=== PATIENT | female | born 1955 | race African-American/Black ===

== ENCOUNTER 2021-01-03 20:36 | Inpatient (IN) | payer MEDICARE, OTHER ==
[~2021-01-03] VITALS: Ht 162.6 cm; Wt 63.6 kg
[2021-01-03 21:36] VITALS: BP 183/93
[2021-01-03 22:12] LABS: BASOPHILS 1.3 % (0-2); EOSINOPHILS 5.7 % (0-7); HEMATOCRIT 36.9 % (36.0-48.0); HEMOGLOBIN 11.9 g/dL (12-16); LYMPHOCYTE ABS# 1.52 10x3/uL (1.18-3.74); LYMPHOCYTES 24.1 % (15-50); MCH 27.2 pg (26.0-34.0); MCHC 32.2 g/dL (31.0-37.0); MCV 84.2 fL (80.0-100.0); MEAN PLATELET VOLUME 10.8 fL (7.4-10.4); MONOCYTES 13.3 % (2-11); NEUTROPHIL ABS# 3.52 10x3/uL (1.56-6.13); NEUTROPHILS 55.6 % (40-80); PLATELET COUNT 290 10x3/uL (130-400); RBC 4.38 10x6/uL (4.00-5.40); RDW 16.2 % (11.5-14.5); WBC 6.3 10x3/uL (4.8-10.8)
[2021-01-03 22:18] LABS: ANION GAP 13.3 mmol/L (8-16); CREATININE - SERUM 3.7 mg/dL (0.6-1.3); POTASSIUM - SERUM 3.3 mmol/L (3.5-5.1)
[2021-01-03 22:24] LABS: ALBUMIN 2.5 g/dL (3.4-5.0); BILIRUBIN - TOTAL 0.4 mg/dL (0.2-1.3)
[2021-01-03 22:36] VITALS: BP 187/92
[2021-01-03 23:20] LABS: INR 1.16 (0.85-1.17); PROTIME 13.7 SECONDS (11.6-15.0)
[2021-01-03 23:36] VITALS: BP 192/93
[2021-01-04 00:30] VITALS: BP 202/102
[2021-01-04 01:30] VITALS: BP 195/108
[2021-01-04 02:30] VITALS: BP 219/95
--- NOTE | 2021-01-04 03:20 | NUR ---
PAGED DR SHARIF FOR BLOOD PRESSURE MEDICATION, STATES TO GIVE 0.1 CLONIDINE ONE TIME
[2021-01-04 03:56] VITALS: BP 183/94
--- NOTE | 2021-01-04 04:10 | NUR ---
TALKED TO NURSE ON FLOOR GIVING REPORT BUT NO PRN ORDERS IN, TRYING TO GET MEDICATION LIST ON PT, PT DOESNT KNOW, SON WONT ANSWER PHONE, PHARMACY THAT PT USES IS CLOSED
--- NOTE | 2021-01-04 05:51 | NUR ---
bP CONTINUES TO BE ELEVATED CALLED DR SHARIF. ORDERS RECIEVED FOR ONE TIME DOSE OF AMLODIPINE 10 MG. UPDATED BEDSIDE NURSE.
--- NOTE | 2021-01-04 07:20 | NUR ---
Lying in bed, awake/alert/oriented, T/R self ad cherri, cont of B/B with Bedpan/BSC use with assist ad cherri, c/o sharp aching BLE pain rated 8/10, medicated as ordered (see MAR), call light/phone/water within reach, no s/s of acute distress observed.
[2021-01-04 08:26] VITALS: BP 207/94
[2021-01-04 12:55] VITALS: BMI 24.0
--- NOTE | 2021-01-04 13:10 | NUR ---
Off unit for dialysis
--- NOTE | 2021-01-04 13:10 | NUR ---
Off unit for dialysis in stable condition via w/c accompanied by hospital staff.
--- NOTE | 2021-01-04 13:24 | NUR ---
Rcvd call from CT, pt mildly allergic to iodine, needs to know if Dr. Land wants to do without iodine or premedicate, paged Dr. Land
--- NOTE | 2021-01-04 13:26 | NUR ---
Rcvd call from Dr. Land, he states to premedicate but no need to do CTA until Wednesday/Wednesday...passed info to CT.
--- NOTE | 2021-01-04 13:31 | NUR ---
spoke to nurse Jessica , pt has iodine allergy. Nurse Jessica called Dr. Land to ask about iodine/pre medicate. Dr. Land informed nurse to be done during wednesday on 01/06/2021 or Wednesday01/07/2021
--- NOTE | 2021-01-04 13:34 | NUR ---
Spoke to Nurse Jessica , pt has iodine allergy. Nurse Jessica called to inform him of pt allergy. Dr. Land informed nurse to perform scan during workday of this week, either Wednesday01/06/2021 or Wednesday01/07/2021
--- NOTE | 2021-01-04 16:00 | NUR ---
Back to unit in stable condition via w/c accompanied by hospital staff, call light/phone/water within reach, no s/s of acute distress observed.
--- NOTE | 2021-01-04 19:00 | NUR ---
BEDSIDE REPORT RECEIVED AND CARE OF PT ASSUMED. PT LYING IN HIGH LEONARD'S POSITION WATCHING TV. IV TO LEFT FA SALINE LOCKED. LEFT CHEST HEMOSPLIT HEP LOCKED. BLE DISCOLORED WITH LEATHERED APPEARENCE. WILL MONITOR FOR NEEDS.
[2021-01-04] MEDS ORDERED: METOPROLOL TART50 MG PO (20:17)
[2021-01-04] MEDS ORDERED: ELIQUIS2.5 MG PO (20:17)
[2021-01-04] MEDS ORDERED: LASIX80 MG PO (20:17)
[2021-01-04] MEDS ORDERED: ISOSORBIDE MONO30 M1 PO (20:17)
[2021-01-04] MEDS ORDERED: NORVASC10 MG PO (20:17)
[2021-01-04 21:01] VITALS: BP 154/55
--- NOTE | 2021-01-04 21:17 | NUR ---
HS MEDICATIONS GIVEN TO INCLUDE MORPHINE IVP PER REQUEST FOR PAIN. WILL MONITOR FOR EFFECTIVENESS.
[2021-01-05 00:15] VITALS: BP 154/55; Ht 162.6 cm; Wt 63.6 kg
--- NOTE | 2021-01-05 00:38 | NUR ---
COMPLETED ADMISSION ASSESSMENT AND HISTORY, NOT COMPLETE ON PREVIOUS SHIFT.
[2021-01-05 06:07] LABS: BASOPHILS 1.8 % (0-2); EOSINOPHILS 6.5 % (0-7); HEMATOCRIT 35.1 % (36.0-48.0); IMMATURE GRANULOCYTES 0.2 % (0-5); LYMPHOCYTE ABS# 1.54 10x3/uL (1.18-3.74); LYMPHOCYTES 30.1 % (15-50); MCH 26.4 pg (26.0-34.0); MCHC 31.3 g/dL (31.0-37.0); MCV 84.2 fL (80.0-100.0); MEAN PLATELET VOLUME 11.4 fL (7.4-10.4); MONOCYTES 17.2 % (2-11); NEUTROPHIL ABS# 2.26 10x3/uL (1.56-6.13); NEUTROPHILS 44.2 % (40-80); PLATELET COUNT 232 10x3/uL (130-400); RBC 4.17 10x6/uL (4.00-5.40); RDW 16.3 % (11.5-14.5); WBC 5.1 10x3/uL (4.8-10.8)
[2021-01-05 06:48] LABS: ANION GAP 14.1 mmol/L (8-16); CALCIUM 9.1 mg/dL (8.5-10.1); CARBON DIOXIDE 26.3 mmol/L (21.0-32.0); CREATININE - SERUM 4.3 mg/dL (0.6-1.3); MAGNESIUM - SERUM 2.2 mg/dL (1.8-2.4); PHOSPHOROUS 3.7 mg/dL (2.5-4.9); VANCOMYCIN - RANDOM 14.6 ug/mL (10.0-20.0)
[2021-01-05 06:54] LABS: POTASSIUM - SERUM 4.4 mmol/L (3.5-5.1)
--- NOTE | 2021-01-05 07:20 | NUR ---
RECIEVE REPORT. RESTING IN BED WITH EYES CLOSED. NO SIGNS OF DISTRESS. CONTINU PLAN OF CARE AND SAFETY PRECAUTIONS.
[2021-01-05 08:27] VITALS: BP 187/75
[2021-01-05 12:10] VITALS: BP 180/89
--- NOTE | 2021-01-05 13:11 | HP ---
PATIENT: JAKE KAT MEDICAL RECORD: [id number] ACCOUNT: [id number] LOCATION:[address] : 53 ADMISSION DATE: 01/04/21 PCP: No PCP HISTORY AND PHYSICAL EXAMINATION DATE OF ADMISSION: 01/04/2021 CHIEF COMPLAINT: Bilateral foot pain, swelling, and redness. HISTORY OF PRESENT ILLNESS: This is a 65-year-old -[place] Citizen female who lives in [place] and has come to [place] to visit her son. She states that she just spent some time in [facility] at rehab for over a week, trying to get some treatment for her feet. She was discharged from there on Wednesday01/01/2021 and she states not a lot was really done for her there and her son brought her here for further evaluation. She has no primary care doctor here, he is in [place]. She has dried wounds on her feet as well as some swelling, pain, and redness. CT of both feet actually shows no osteomyelitis, but there is cellulitis noted bilaterally. Lab in the Emergency Department showed a BUN of 8 and a creatinine of 3.7, glucose 166. She is admitted for further evaluation. PAST MEDICAL HISTORY: She has a history of diabetes, end-stage renal disease, on dialysis. She states she had a stroke at age 29, but no residual effects from that. She has hypertension, atrial fibrillation. PAST SURGICAL HISTORY: She has had a cholecystectomy, hysterectomy, ORIF of the distal fibula. ALLERGIES: REPORTEDLY TO PENICILLIN AND IODINE. SOCIAL HISTORY: She is not . 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 FAMILY HISTORY: She is adopted, but she states her biological mother's history included diabetes and heart disease. HABITS: Former smoker. Occasional alcohol. No illicit drug use. REVIEW OF SYSTEMS: GENERAL: No major weight changes. HEENT: No particular sinus or allergy problems. RESPIRATORY: No known asthma, no COPD. CARDIAC: She has a history of AFib. GASTROINTESTINAL: Denies diarrhea, constipation, or heartburn. GENITOURINARY: No significant problems there. MUSCULOSKELETAL: No significant joint aches and pains. NEUROLOGIC: No migraines or seizures. She states she had a stroke at age 29, but no residual effects. PSYCHIATRIC: Denies depression or melancholia. MEDICATIONS: Really unknown at this time. She states that her son who is not here has the list. She knows that she takes Eliquis 2.5 mg twice a day, and is not sure of the other. PHYSICAL EXAMINATION: VITAL SIGNS: Temperature 97.2, pulse 67, respirations 16, blood pressure HISTORY AND PHYSICAL [id number] JAKE KAT initially was 207/94, O2 sat was 97%. GENERAL: She is awake and alert and very pleasant. HEENT: Grossly within normal limits. NECK: Supple. No JVD or bruit. CARDIOVASCULAR: Regular rate and rhythm at this time. No murmur. LUNGS: Clear. ABDOMEN: Soft, flat, nontender. EXTREMITIES: Shows mild lower extremity swelling with some cellulitis noted. She has dried lesions on her feet and toes. There is no drainage from any of these. LABORATORY DATA: CBC with a white blood cell count of 6300, hemoglobin 11.9, hematocrit 36.9. Basic metabolic panel: Sodium 139, potassium 3.3, chloride 101, CO2 of 28, BUN 8, creatinine 3.7, glucose 166, calcium 9.0. Liver functions are all okay except alkaline phosphatase a little elevated at 199, albumin 2.5. INR 1.16. DIAGNOSTIC DATA: CT of the left foot shows no osteomyelitis, but there are changes consistent with cellulitis. CT of the right foot shows no osteomyelitis. There is diffuse arthritis and changes consistent with cellulitis. ASSESSMENT: 1. Bilateral cellulitis with pain in lower extremities. 2. Hypertension. 3. End-stage renal disease, on dialysis. 4. By her history, she states she has diabetes, but is on no medications for it. She states she used to be on insulin many years ago. PLAN: She is admitted, started on IV antibiotics. Nephrology is consulted. We need to get an accurate list of her home medications. Further tests or procedures as warranted. TRANSINT:[id number] Voice Confirmation ID: [id number] DOCUMENT ID: [id number] ALDEN SHARIF MD at 1311 CC: [id number] DICTATION DATE: 01/05/21 1003 GEODETIC TECHNICIAN: 01/05/21 1121 ADM IN [facility] [address] [place] [address]
[2021-01-05] MEDS ORDERED: PROTONIX40 MG PO (17:54)
[2021-01-05] MEDS ORDERED: ULTRAM50 MG PO (17:55)
[2021-01-05] MEDS ORDERED: PLAVIX75 MG (17:57)
[2021-01-05] MEDS ORDERED: PLAVIX75 MG PO (18:04)
[2021-01-05] MEDS ORDERED: PRAVASTATIN SOD10 MG PO (18:05)
[2021-01-05] MEDS ORDERED: CARAFATE1 G PO (18:05)
[2021-01-05] MEDS ORDERED: GABAPENTIN100 MG PO (18:06)
--- NOTE | 2021-01-05 18:17 | NUR ---
ALERT AND ORIENTED X4. SITTING UP IN BED. SON ARRIVES WITH HOME MEDICATIONS. MEDICATIONS UPDATED IN MED REC. DENIES ANY NEEDS. CONTINUE PLAN OF CARE AND SAFETY PRECAUTIONS.
[2021-01-05 20:00] VITALS: BP 166/75
[2021-01-06 05:58] VITALS: BP 174/80
--- NOTE | 2021-01-06 07:20 | NUR ---
RECIEVE REPORT. RESTING IN BED WITH EYES CLOSED. NO SIGNS OF DISTRESS. CONTINUE PLAN OF CARE AND SAFETY PRECAUTIONS.
[2021-01-06 22:25] VITALS: BP 147/68
--- NOTE | 2021-01-07 04:19 | NUR ---
I have reviewed this patient and I concur with the Shift Assessment completed by the Licensed Practical Nurse today this shift.
[2021-01-07 06:53] LABS: BASOPHILS 0.3 % (0-2); EOSINOPHILS 0.1 % (0-7); HEMATOCRIT 38.3 % (36.0-48.0); HEMOGLOBIN 12.6 g/dL (12-16); IMMATURE GRANULOCYTES 0.1 % (0-5); LYMPHOCYTE ABS# 1.13 10x3/uL (1.18-3.74); LYMPHOCYTES 14.8 % (15-50); MCH 27.2 pg (26.0-34.0); MCHC 32.9 g/dL (31.0-37.0); MCV 82.7 fL (80.0-100.0); MEAN PLATELET VOLUME 11.8 fL (7.4-10.4); MONOCYTES 1.2 % (2-11); NEUTROPHIL ABS# 6.35 10x3/uL (1.56-6.13); NEUTROPHILS 83.5 % (40-80); PLATELET COUNT 278 10x3/uL (130-400); RBC 4.63 10x6/uL (4.00-5.40); RDW 16.1 % (11.5-14.5)
[2021-01-07 06:56] LABS: WBC 7.6 10x3/uL (4.8-10.8)
[2021-01-07 07:41] LABS: ANION GAP 24.9 mmol/L (8-16); CALCIUM 9.4 mg/dL (8.5-10.1); CARBON DIOXIDE 20.1 mmol/L (21.0-32.0); CREATININE - SERUM 6.7 mg/dL (0.6-1.3); VANCOMYCIN - RANDOM 24.3 ug/mL (10.0-20.0)
--- NOTE | 2021-01-07 09:00 | NUR ---
LETHARGIC, AROUSES TO STIMULI. DIFFICULTY FOLLOWING DIRECTIONS. CT UNABLE TO BE COMPLETED DUE TO DIFFICULTY FOLLOWING DIRECTIONS. BECOME COMBATIVE WHEN TOUCHED. NOTIFY WALE WITH DIALYSIS TO INITIATE DIALYSIS TREATMENT.
--- NOTE | 2021-01-07 13:19 | NUR ---
Nutrition Follow-up: Not eating. Nursing reports pt becomes combative when feeding attempted. HD TTS. K+ 6.0. Diet: Diabetic, Sachin BID PO intake: 0% x 3 yesterday, 0% this AM Wt: 140# (01/05) Labs noted: K+ 6.0, Glu 113, PO4 3.7 (01/05) Meds noted: Aryan Walker -Change to renal carb consistent diet; K+ elevated. -Encourage PO intake and honor food preferences within diet restrictions. -+Nepro with meals. -Need new wt. -RD will follow up within 3 days.
--- NOTE | 2021-01-07 14:00 | NUR ---
WALE IN DIALYSIS REPORTS INCREASED AMS. YVONNE NOTIFIED. NOTIFIED. CT OF HEAD ORDERED.
--- NOTE | 2021-01-07 18:04 | NUR ---
ALERT. MOVING IN BED. NONVERBAL. LOOKS AWAY. ABLE TO MOVE ALL EXTREMITIES. REFUSED DINNER. CONTINUE PLAN OF CARE AND SAFETY PRECAUTIONS.
[2021-01-07 21:45] VITALS: BP 158/63
--- NOTE | 2021-01-07 23:58 | NUR ---
PT AWAKE IN ROOM, REMAINS NONVERBAL TO STAFF. PULLING AT BRIEF. SMALL AMOUNT OF FOUL SMELLING URINE NOTED. ATTEMPTED TO DO PERICARE & PT PUSHED HAND AWAY. SHE ALSO PULLED CLEAN BREIF OFF. PULLED AT DRESSING TO RIGHT FOOT TO REMOVE IT. SEVERAL ATTEMPTS MADE AT REPOSITIONING PT BUT SHE CONTINUES TO CURL UP ON HER RIGHT SIDE. WILL CONTINUE TO MONITOR.
--- NOTE | 2021-01-08 00:01 | NUR ---
2100-- HS MED UNABLE TO GET PT TO TAKE HS MED.
[2021-01-08 01:34] VITALS: BP 165/78
[2021-01-08 06:52] LABS: BASOPHILS 0 % (0-2); EOSINOPHILS 0 % (0-7); HEMATOCRIT 37.3 % (36.0-48.0); HEMOGLOBIN 12.2 g/dL (12-16); IMMATURE GRANULOCYTES 0.3 % (0-5); LYMPHOCYTE ABS# 1.04 10x3/uL (1.18-3.74); LYMPHOCYTES 14.7 % (15-50); MCH 26.8 pg (26.0-34.0); MCHC 32.7 g/dL (31.0-37.0); MEAN PLATELET VOLUME 11.1 fL (7.4-10.4); MONOCYTES 6.5 % (2-11); NEUTROPHIL ABS# 5.55 10x3/uL (1.56-6.13); NEUTROPHILS 78.5 % (40-80); PLATELET COUNT 242 10x3/uL (130-400); RBC 4.55 10x6/uL (4.00-5.40); RDW 15.8 % (11.5-14.5); WBC 7.1 10x3/uL (4.8-10.8)
[2021-01-08 07:04] LABS: ANION GAP 23.6 mmol/L (8-16); CALCIUM 8.7 mg/dL (8.5-10.1); CARBON DIOXIDE 20.7 mmol/L (21.0-32.0); VANCOMYCIN - RANDOM 19.5 ug/mL (10.0-20.0)
[2021-01-08 07:07] LABS: CREATININE - SERUM 4.8 mg/dL (0.6-1.3); POTASSIUM - SERUM 5.3 mmol/L (3.5-5.1)
[2021-01-08 08:27] VITALS: BP 169/63
[2021-01-08 11:00] VITALS: BP 153/69
[2021-01-08 14:37] VITALS: BP 156/64
--- NOTE | 2021-01-08 15:42 | NUR ---
I have reviewed this patient and I concur with the Shift Assessment completed by the Licensed Practical Nurse today this shift.
[2021-01-08 21:29] VITALS: BP 151/61
[2021-01-09 01:44] VITALS: BP 111/57
--- NOTE | 2021-01-09 04:09 | NUR ---
PT REMAINS AWAKE & PLEASANTLY CONFUSED/PARANOID. REFUSED TO TAKE HS MEDS. THOUGHT THE BATTERIES WEREN'T WORKING IN TELEMETRY & THAT I WASN'T ABLE TO MONITOR HER PROPERLY. PULLED DRESSING OFF OF RIGHT LOWER EXTREMITY THEN WANTS IT REWRAPPED. WANTED TO MAKE SURE THAT I HADN'T PUT ANYTHING IN THE BETADINE SOLUTION FOR HER FOOT...
[2021-01-09 05:35] VITALS: BP 101/59
[2021-01-09 05:59] LABS: BASOPHILS 0.2 % (0-2); EOSINOPHILS 0.7 % (0-7); HEMATOCRIT 35.4 % (36.0-48.0); HEMOGLOBIN 11.5 g/dL (12-16); IMMATURE GRANULOCYTES 0.2 % (0-5); LYMPHOCYTE ABS# 1.68 10x3/uL (1.18-3.74); LYMPHOCYTES 20.5 % (15-50); MCH 26.7 pg (26.0-34.0); MCHC 32.5 g/dL (31.0-37.0); MCV 82.1 fL (80.0-100.0); MEAN PLATELET VOLUME 11.2 fL (7.4-10.4); MONOCYTES 14.5 % (2-11); NEUTROPHIL ABS# 5.24 10x3/uL (1.56-6.13); NEUTROPHILS 63.9 % (40-80); PLATELET COUNT 268 10x3/uL (130-400); RBC 4.31 10x6/uL (4.00-5.40); RDW 15.7 % (11.5-14.5); WBC 8.2 10x3/uL (4.8-10.8)
--- NOTE | 2021-01-09 07:00 | NUR ---
Sitting up in bed, awake/alert/confused, T/R self ad cherri, cont of B/B with use of BSC with assist ad cherri, denies pain/other discomfort at this time, call light/phone/water within reach, no s/s of acute distress observed.
[2021-01-09 07:05] LABS: ANION GAP 17.3 mmol/L (8-16); CALCIUM 8.3 mg/dL (8.5-10.1); CARBON DIOXIDE 26.7 mmol/L (21.0-32.0); CREATININE - SERUM 6.3 mg/dL (0.6-1.3); VANCOMYCIN - RANDOM 19.7 ug/mL (10.0-20.0)
[2021-01-09 08:04] VITALS: BP 125/71
--- NOTE | 2021-01-09 12:47 | NUR ---
Nutrition Reassessment/Follow-up: Pt has been confused and not eating. Per podiatry, gangrene is stable. HD TTS. Diet: Renal, Carb Consistent, Sachin BID No new wt; last wt: 140# (01/05) Labs noted: K+ 4.0, Glu 106, Ca 8.3 Meds noted: Carafate, Protonix Nutrition Goals: -PO intake >=75% meals & snacks -Dry wt stable -Documented wound healing/improvement -Glu to trend wnl Nutrition Intervention: -Nutrition needs unchanged from initial assessment. -Encourage PO intake and honor food preferences within diet restrictions. -+Nepro with meals. -Need new wt. -RD follow-up: 01/13
--- NOTE | 2021-01-09 17:00 | NUR ---
Pt calling 911 but unable to clearly voice why.
--- NOTE | 2021-01-09 17:13 | NUR ---
Spoke with son, Geraldo, who states he's never known her to have dementia, unable to tell this nurse much more than that pt is unable to tolerate Morphine.
--- NOTE | 2021-01-09 19:18 | NUR ---
PT IN BED, ALERT AND CONFUSED, RESP EVEN AND UNLABORED, NO DISTRESS NOTED, CL IN REACH, SR UP X 2.
[2021-01-09 20:13] VITALS: BP 128/61
[2021-01-10 00:06] VITALS: BP 144/58
--- NOTE | 2021-01-10 03:22 | NUR ---
I have reviewed this patient and I concur with the Shift Assessment completed by the Licensed Practical Nurse today this shift.
[2021-01-10 04:22] VITALS: BP 121/59
[2021-01-10 06:30] LABS: ANION GAP 15.1 mmol/L (8-16); CALCIUM 8.6 mg/dL (8.5-10.1); CARBON DIOXIDE 26.5 mmol/L (21.0-32.0); POTASSIUM - SERUM 3.6 mmol/L (3.5-5.1); VANCOMYCIN - RANDOM 15.9 ug/mL (10.0-20.0)
[2021-01-10 06:31] LABS: CREATININE - SERUM 4.1 mg/dL (0.6-1.3)
[2021-01-10 07:23] LABS: BASOPHILS 0.6 % (0-2); EOSINOPHILS 2.7 % (0-7); HEMATOCRIT 37.7 % (36.0-48.0); HEMOGLOBIN 12.5 g/dL (12-16); IMMATURE GRANULOCYTES 0.3 % (0-5); LYMPHOCYTES 27.9 % (15-50); MCH 26.9 pg (26.0-34.0); MCHC 33.2 g/dL (31.0-37.0); MCV 81.3 fL (80.0-100.0); MEAN PLATELET VOLUME 12.3 fL (7.4-10.4); MONOCYTES 16.9 % (2-11); NEUTROPHILS 51.6 % (40-80); PLATELET COUNT 278 10x3/uL (130-400); RBC 4.64 10x6/uL (4.00-5.40); RDW 15.6 % (11.5-14.5); WBC 7.2 10x3/uL (4.8-10.8)
--- NOTE | 2021-01-10 07:30 | NUR ---
Lying in bed with eyes closed, rouses easily with verbal stimulus, T/R self ad cherri, incont of B/B with use of incont pads as needed, pericare provided with daily bath and PRN, no s/s of pain such as grimacing/groaning/guarding observed, call light/phone/water within reach, no s/s of acute distress observed.
--- NOTE | 2021-01-10 12:00 | NUR ---
Family friend here asking questions about pt condition, explained HIPPA to her, obtained pt permission to discuss her medical information with Carmen Perkins and updated Ms Perkins. Ms Perkins then visited with the pt followed by going to track down pt son-Geraldo.
--- NOTE | 2021-01-10 13:30 | NUR ---
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 Ms. Perkins is unable to convince pt that she is not going home today so Ms. Perkins went to get pt son-Geraldo.
--- NOTE | 2021-01-10 18:12 | MORECARE ---
CASE MANAGEMENT DISCHARGE SUMMARY PATIENT: JAKE KAT UNIT: [id number] ADM DATE: 01/04/21 AGE: 65 : 54 SEX: F ROOM/BED: D.2137 AUTHOR: PETROS,DOC PHYSICIAN: REFERRING PHYSICIAN: ALDEN SHARIF MD DATE OF SERVICE: 01/10/21 Case Management Discharge Planning Summary COMMENTS ENTERED DATE: 01/10/21 18:06 CT COMMENT TYPE: Discharge Planning REVIEWER: Carmelina Rodriguez CM spoke with Kirstin Mendezjason, she states [facility] will accept patient back to their facility when ready for discharge. I have not had a return call from [facility] to know if they will accept the patient back. ENTERED DATE: 01/10/21 15:45 CT COMMENT TYPE: Discharge Planning REVIEWER: Carmelina Rodriguez CM was called to room by patient's family member, Geraldo Oreilly. He states that his mother needs to go back to [facility] for long-term therapy. I spoke with patient and she seems confused by going to the intermediate. Family states they have already approved it with Daly. Daly's phone # is [phone]. I called Daly and reached an answering machine and asked for a call back with my phone number. I called Kirstin to see if she could return to her chair at [facility]. Kirstin will call me back. I do not have a fax number for [facility], but will try and get it to fax referral. DCP REVIEW SUMMARY ANTICIPATED D/C DATE: EXPECTED LOS : CASE STATUS: DCP Initiated INITIAL REVIEW: 01/10/2021 INITIAL REVIEWER: Carmelina Rodriguez FINAL DISCHARGE DISPOSITION: : FINAL REVIEWER: FINAL REVIEW DATE: DCP Focus Questions & Answers QUESTION: ANSWER : PATIENT: JAKE KAT ENCOUNTER: [id number] MEDICAL RECORD#: [id number] ADMISSION DATE: 01/04/2021 DISCHARGE DATE: ATTENDING MD: ALDEN ALLEN : AGE: 65 MARITAL STATUS: S DC PLAN ID: [id number] FACILITY: [facility] PRINTED ON: 01/10/21 18:12 CT All edits/amendments must be made on the electronic document DICTATION DATE: 01/10/211811 MULTIGRAPH OPERATOR: NAVI 01/10/211811 RPT#: [id number] DC DATE: STATUS: ADM IN [facility] [address] [place] [address] END OF REPORT
--- NOTE | 2021-01-10 19:29 | NUR ---
RECEIVED REPORT, WILL ASSUME CARE OF PT, IN WHEELCHAIR, SAYS SHE IS LEAVING, FAMILY IN ROOM, WILL CONTINUE PLAN OF CARE
[2021-01-10 20:37] VITALS: BP 158/93
[2021-01-11 00:24] VITALS: BP 134/80
[2021-01-11 05:18] VITALS: BP 180/87
[2021-01-11 07:11] LABS: ANION GAP 14.7 mmol/L (8-16); CALCIUM 8.7 mg/dL (8.5-10.1); CARBON DIOXIDE 25.5 mmol/L (21.0-32.0); POTASSIUM - SERUM 3.2 mmol/L (3.5-5.1); VANCOMYCIN - RANDOM 16.6 ug/mL (10.0-20.0)
[2021-01-11 07:16] LABS: CREATININE - SERUM 5.5 mg/dL (0.6-1.3)
--- NOTE | 2021-01-11 07:48 | NUR ---
INITIAL ROUNDS- PT RESTING COMFORTABLY IN BED. A/XO X2. RESP EVEN AND NONLABORED ON RA. RT FA IV SL WITH SWAB CAP IN PLACE. PT REFUSES TO WEAR SCDS, EXPLAINED RATIONAL FOR SCDS. PT ALSO REFUSES TO HAVE COMPLETE HEAD TO TOE ASSESSMENT. STATES THAT SHE IS GOING HOME.RT CHEST HEMOSPLIT WITH DRESSING CDI. CALL LIGHT IN REACH, WILL CONTINUE PLAN OF CARE.
[2021-01-11 07:54] LABS: BASOPHILS 0.4 % (0-2); EOSINOPHILS 4.6 % (0-7); HEMOGLOBIN 11.9 g/dL (12-16); IMMATURE GRANULOCYTES 0.1 % (0-5); LYMPHOCYTE ABS# 2.59 10x3/uL (1.18-3.74); MCH 26.6 pg (26.0-34.0); MCHC 33.1 g/dL (31.0-37.0); MCV 80.5 fL (80.0-100.0); MONOCYTES 19.7 % (2-11); NEUTROPHIL ABS# 2.67 10x3/uL (1.56-6.13); NEUTROPHILS 38.2 % (40-80); PLATELET COUNT 251 10x3/uL (130-400); RBC 4.47 10x6/uL (4.00-5.40); RDW 15.3 % (11.5-14.5)
[2021-01-11 08:00] VITALS: BP 166/85
--- NOTE | 2021-01-11 08:45 | NUR ---
PT TO DIALYSIS VIA WHEELCHAIR, NAD NOTED.
--- NOTE | 2021-01-11 11:59 | NUR ---
UPDATED PT'S SISTER ON PLAN OF CARE AND DISCHARGE PLANS.
--- NOTE | 2021-01-11 13:26 | NUR ---
PT VERY ANXIOUS, KEEPS SAYING THAT SHE IS LEAVING, THAT DR. SHARIF TOLD HER TO GO TO DIALYSIS TODAY AND THEN SHE COULD GO HOME. INFORMED PT THAT WE DO NOT HAVE ANY ORDERS FOR HER TO DISCHARGE TODAY, PT VERY INSISTING THAT SHE IS LEAVING TODAY, PT TRYING TO GET OUT OF BED. HELPED PT BACK TO BED AND GAVE 2MG OF ATIVAN AT THIS TIME.
--- NOTE | 2021-01-11 14:49 | NUR ---
PT RESTING COMFORTABLY IN BED WITH EYES CLOSED, NAD NOTED.
--- NOTE | 2021-01-11 20:37 | NUR ---
PM MEDS GIVEN, PT SITTING ON SIDE OF BED EATING HER DINNER, DENIES ANY NEEDS AT THIS TIME, BED IS LOW, SRX2, CALL LIGHT IN REACH, ROB ALARM IS ON, WILL CONTINUE PLAN OF CARE
[2021-01-11 20:52] VITALS: BP 126/72
[2021-01-12 01:38] VITALS: BP 163/76
[2021-01-12 05:44] VITALS: BP 147/63
[2021-01-12 06:28] LABS: VANCOMYCIN - RANDOM 14.5 ug/mL (10.0-20.0)
[2021-01-12 08:07] VITALS: BP 159/66
--- NOTE | 2021-01-12 11:30 | NUR ---
BED BATH AND COMPLETE LINEN CHANGE DONE AT THIS TIME BY TRIPLE AIR VALVE TESTER.
[2021-01-12 12:06] VITALS: BP 151/80
--- NOTE | 2021-01-12 12:58 | NUR ---
ASKED PT IF SHE WANTED TO GET CLEANED UP TODAY AND PT STATED "YES" BUT WHEN STUDENT SPECIALIST WENT TO ASK HER IF SHE WAS READY TO GET CLEANED UP, PT STATED THAT SHE WANTED TO GET CLEAN CLOTHES FIRST AND WANTED HER LINEN CHANGED AFTER SHE EAT LUNCH. PT SITTING UP TO SIDE OF BED, EATING LUNCH, ALL NEEDS MET, CALL LIGHT IN REACH, ROB ALARM ON.
--- NOTE | 2021-01-12 16:37 | NUR ---
PT RESTING COMFORTABLY IN BED, DENIES ANY NEEDS AT THIS TIME. CALL LIGHT IN REACH, ROB ALARM ON.
[2021-01-12 16:55] VITALS: BP 100/67
--- NOTE | 2021-01-12 19:21 | NUR ---
RECEIVED REPORT, WILL ASSUME CARE OF PT, SITTING UP IN BED, EATING CHIPS, BED IS LOW, SRX2, ROB ALARM IS ON, CALL LIGHT IN REACH, WILL CONTINUE PLAN OF CARE
[2021-01-12 20:00] VITALS: BP 136/61
--- NOTE | 2021-01-12 23:49 | NUR ---
I have reviewed this patient and I concur with the Shift Assessment completed by the Licensed Practical Nurse today this shift.
[2021-01-13] VITALS: BP 119/58
--- NOTE | 2021-01-13 07:00 | NUR ---
Lying in bed with HOB elevated, awake/alert/oriented, T/R self ad cherri, cont of B/B with BSC with assist ad cherri, denies pain/other discomfort at this time, call light/phone/water within reach, no s/s of acute distress observed.
[2021-01-13 07:42] LABS: VANCOMYCIN - RANDOM 14.9 ug/mL (10.0-20.0)
[2021-01-13 07:43] LABS: CREATININE - SERUM 6.6 mg/dL (0.6-1.3)
[2021-01-13 08:23] VITALS: BP 160/81
--- NOTE | 2021-01-13 10:14 | NUR ---
Called report to YESENIA Franklin at [place], station [address], phone [phone].
--- NOTE | 2021-01-13 10:45 | NUR ---
Discontinued IV access at this time, bull well, waiting for transport.
--- NOTE | 2021-01-13 11:10 | NUR ---
Discharged to [facility], in [place], in stable condition via w/c accompanied by hospital staff and family members to be transported to facility by pt son, Geraldo.
--- NOTE | 2021-01-13 14:52 | MORECARE ---
CASE MANAGEMENT DISCHARGE SUMMARY PATIENT: JAKE KAT UNIT: [id number] ADM DATE: 01/04/21 AGE: 65 : 54 SEX: F ROOM/BED: D.5387 AUTHOR: PETROS,DOC PHYSICIAN: REFERRING PHYSICIAN: ALDEN SHARIF MD DATE OF SERVICE: 01/13/21 Case Management Discharge Planning Summary COMMENTS ENTERED DATE: 01/13/21 11:27 CT COMMENT TYPE: Discharge Planning REVIEWER: Vicenta Patiño CM called and spoke with Daly at [facility]. [facility] facility is ready to accept patient back today. Faxed records as requested. Called and spoke with Kirstin Marroquin at [facility] and confirmed that HD will continue at [facility] per her previous schedule of Wednesday, , and Saturdays at 07:00. REZA informed nurse, Aracely, of discharge plans. Nurse to call report to [phone]. Patient will go to [facility] at rehab facility. Aracely verbalized understanding. REZA met with patent and family. DC IMM explained and signed. Copy on chart. Family will transport patient to [facility]. ENTERED DATE: 01/10/21 18:06 CT COMMENT TYPE: Discharge Planning REVIEWER: Carmelina Rodriguez CM spoke with Kirstin Baer, she states [facility] dialysis center will accept patient back to their facility when ready for discharge. I have not had a return call from [facility] to know if they will accept the patient back. ENTERED DATE: 01/10/21 15:45 CT COMMENT TYPE: Discharge Planning REVIEWER: Carmelina Rodriguez CM was called to room by patient's family member, Geraldo Oreilly. He states that his mother needs to go back to [facility] for long-term therapy. I spoke with patient and she seems confused by going to the senior living. Family states they have already approved it with Daly. Daly's phone # is [phone]. I called Daly and reached an answering machine and asked for a call back with my phone number. I called Kirstin to see if she could return to her chair at [facility]. Kirstin will call me back. I do not have a fax number for [facility], but will try and get it to fax referral. DCP REVIEW SUMMARY ANTICIPATED D/C DATE: EXPECTED LOS : CASE STATUS: DCP Initiated INITIAL REVIEW: 01/10/2021 INITIAL REVIEWER: Carmelina Rodriguez FINAL DISCHARGE DISPOSITION: : FINAL REVIEWER: FINAL REVIEW DATE: DCP Focus Questions & Answers QUESTION: ANSWER : PATIENT: JAKE KAT ENCOUNTER: [id number] MEDICAL RECORD#: [id number] ADMISSION DATE: 01/04/2021 DISCHARGE DATE: 01/13/2021 ATTENDING MD: ALDEN ALLEN : AGE: 65 MARITAL STATUS: S DC PLAN ID: [id number] FACILITY: [facility] PRINTED ON: 01/13/21 14:52 CT All edits/amendments must be made on the electronic document DICTATION DATE: 01/13/211451 RACEBOOK WRITER: NAVI 01/13/211451 RPT#: [id number] DC DATE:01/13/21 STATUS: DIS IN [facility] [address] [place] [address] END OF REPORT
--- NOTE | 2021-01-16 08:22 | MORECARE ---
CASE MANAGEMENT DISCHARGE SUMMARY PATIENT: JAKE KAT UNIT: [id number] ADM DATE: 01/04/21 AGE: 65 : 54 SEX: F ROOM/BED: D.7017 AUTHOR: PETROS,DOC PHYSICIAN: REFERRING PHYSICIAN: ALDEN SHARIF MD DATE OF SERVICE: 01/16/21 Case Management Discharge Planning Summary COMMENTS ENTERED DATE: 01/13/21 11:27 CT COMMENT TYPE: Discharge Planning REVIEWER: Vicenta Patiño CM called and spoke with Daly at [facility]. [facility] facility is ready to accept patient back today. Faxed records as requested. Called and spoke with Kirstin Marroquin at [facility] and confirmed that HD will continue at [facility] per her previous schedule of Wednesday, , and Saturdays at 07:00. REZA informed nurse, Aracely, of discharge plans. Nurse to call report to [phone]. Patient will go to [facility] at rehab facility. Aracely verbalized understanding. REZA met with patent and family. DC IMM explained and signed. Copy on chart. Family will transport patient to [facility]. ENTERED DATE: 01/10/21 18:06 CT COMMENT TYPE: Discharge Planning REVIEWER: Carmelina Rodriguez CM spoke with Kirstin Baer, she states [facility] dialysis center will accept patient back to their facility when ready for discharge. I have not had a return call from [facility] to know if they will accept the patient back. ENTERED DATE: 01/10/21 15:45 CT COMMENT TYPE: Discharge Planning REVIEWER: Carmelina Rodriguez CM was called to room by patient's family member, Geraldo Oreilly. He states that his mother needs to go back to [facility] for senior care therapy. I spoke with patient and she seems confused by going to the halfway. Family states they have already approved it with Daly. Daly's phone # is [phone]. I called Daly and reached an answering machine and asked for a call back with my phone number. I called Kirstin to see if she could return to her chair at [facility]. Kirstin will call me back. I do not have a fax number for [facility], but will try and get it to fax referral. DCP REVIEW SUMMARY ANTICIPATED D/C DATE: EXPECTED LOS : CASE STATUS: DCP Initiated INITIAL REVIEW: 01/10/2021 INITIAL REVIEWER: Carmelina Rodriguez FINAL DISCHARGE DISPOSITION: : FINAL REVIEWER: FINAL REVIEW DATE: DCP Focus Questions & Answers QUESTION: ANSWER : PATIENT: JAKE KAT ENCOUNTER: [id number] MEDICAL RECORD#: [id number] ADMISSION DATE: 01/04/2021 DISCHARGE DATE: 01/13/2021 ATTENDING MD: ALDEN ALLEN : AGE: 65 MARITAL STATUS: S DC PLAN ID: [id number] FACILITY: [facility] PRINTED ON: 01/16/21 8:22 CT All edits/amendments must be made on the electronic document DICTATION DATE: 01/16/21820 DIRECTOR OF MEDICAL STAFF SERVICES: NAVI 01/16/21820 RPT#: [id number] DC DATE:01/13/21 STATUS: DIS IN [facility] [address] [place] [address] END OF REPORT
== END 2021-01-13 11:10 | DRG 299 ==
LOC: D.ER 20:36 → D.M2 01-04 03:56
PROVIDERS: Family Medicine; ADMIT Family Medicine; ATTEND Family Medicine
PROC: 5A1D70Z Performance of Urinary Filtration, Intermittent, Less than 6 Hours Per Day (ICD-10-PCS; principal; 2021-01-04)
DX: E11.52 Type 2 diabetes mellitus with diabetic peripheral angiopathy with gangrene (principal); N18.6 End stage renal disease; L03.116 Cellulitis of left lower limb; I12.0 Hypertensive chronic kidney disease with stage 5 chronic kidney disease or end stage renal disease; I70.263 Atherosclerosis of native arteries of extremities with gangrene, bilateral legs; L03.115 Cellulitis of right lower limb; G93.40 Encephalopathy, unspecified; E11.22 Type 2 diabetes mellitus with diabetic chronic kidney disease; I48.91 Unspecified atrial fibrillation; L60.2 Onychogryphosis; Z87.891 Personal history of nicotine dependence